=== PATIENT | female | born 1985 | race Caucasian/White ===

== ENCOUNTER 2024-10-29 06:42 | Emergency (ER) | payer MEDICAID, SELFPAY ==
[2024-10-29 06:42] VITALS: BMI 39.1
[2024-10-29 06:56] VITALS: BP 175/129; PULSE 100; RESP 17; TEMP 36.9; O2SAT 98
--- NOTE | 2024-10-29 06:59 | EDNOTE_ITS ---
<Statement entered by Flores Kahn MD - 10/29/24 16:32> As co-signing physician, I was present and available for consult prn. I concur with the plan and care as documented by the midlevel provider. ED Skin Abcess FB-RME/HPI General Chief complaint: Animal Bite Stated complaint: SPIDER BITE RT LEG Time Seen by Provider: 10/29/24 06:46 Arrival date/time: 10/29/24 06:42 39-year-old female presents to the emergency department complains of spider bite to the right leg reports symptoms ongoing x 1 day patient reports no fever nausea or vomiting reports the area of concern is painful Limitations: no limitations Related Data Home Medications ?Medication ?Instructions ?Recorded ?Confirmed fluoxetine 20 mg capsule (Prozac) 20 mg PO QDAY 04/26/19 09/22/19 Previous Rx's ?Medication ?Instructions ?Recorded albuterol sulfate 90 mcg/actuation See Rx Instructions inhalation 02/20/19 aerosol inhaler .COMPLEX PRN wheezing / cough / shortness of breath #6.7 grams clindamycin HCl 150 mg capsule 450 mg (3 x 150 mg) PO TID 7 days 10/29/24 #63 caps ibuprofen 800 mg tablet 800 mg PO TID PRN pain #30 tabs 10/29/24 Allergies Allergy/AdvReac Type Severity Reaction Status Date / Time No Known Allergies Allergy Verified 06/08/19 13:59 Review of Systems Review of Systems Systems Reviewed: All systems reviewed, normal except as documented Constitutional Constitutional: Reports system reviewed and no additional complaints, except as documented, Denies fever(s) and Denies headache(s) Eyes Eyes: Reports system reviewed and no additional complaints, except as documented and Denies blurry vision ENT Ears, Nose, Mouth, and Throat: Reports system reviewed and no additional complaints, except as documented, Denies headache(s), Denies nasal congestion and Denies nasal discharge Cardiovascular Cardiovascular: Reports system reviewed and no additional complaints, except as documented, Denies chest pain and Denies dyspnea Respiratory Respiratory: Reports system reviewed and no additional complaints, except as documented, Denies chest congestion, Denies cough and Denies dyspnea Gastrointestinal Gastrointestinal: Reports system reviewed and no additional complaints, except as documented and Denies abdominal pain Integumentary/Breasts Skin/Breast: Reports system reviewed and no additional complaints, except as documented and Denies rash Neurologic Neurologic: Reports system reviewed and no additional complaints, except as documented, Reports as per HPI and Denies headache(s) Past Medical History Past Medical History CARDIAC: Negative Congestive Heart Failure RESPIRATORY: Positive Asthma; Negative Chronic Obstructive Pulmonary Disease (COPD) GENITOURINARY: Negative Renal Disease MUSCULOSKELETAL: Positive Arthritis ENDOCRINE: Negative Diabetes Mellitus Type 1 or Diabetes Mellitus Type 2 PSYCHO/SOCIAL: Positive Depression and Anxiety Surgical History SURGICAL: Positive Tubal Ligation and Section Social History SMOKING STATUS: Never smoker ED Exam General Limitations: Present no limitations General appearance: Present alert and in no apparent distress Head Head exam: Present atraumatic Eye Eye exam: Present normal appearance, PERRL and EOMI ENT ENT exam: Present normal exam, normal oropharynx and mucous membranes moist Neck Neck exam: Present normal inspection, full ROM and trachea midline Chest Chest inspection: Present normal inspection and symmetric chest wall rise Respiratory Respiratory exam: Present normal lung sounds bilaterally Cardiovascular Cardiovascular exam: Present regular rate, normal rhythm and normal heart sounds Abdominal Exam Abdominal exam: Present soft and normal bowel sounds Extremities Exam Extremities exam: Present full ROM, tenderness and other (Right upper leg insect bite versus cellulitis versus abscess) Back Exam Back exam: Present normal inspection and full ROM Neurological Exam Neurological exam: Present alert, oriented X3 and CN II-XII intact Psychiatric Psychiatric exam: Present normal affect and normal mood Skin Skin exam: Present warm, dry and other (Right upper leg insect bite versus cellulitis versus abscess) Course Quality Measures none Orders Category Date Time Status Ketorolac Inj [Toradol Inj] Med 10/29/24 06:59 Discontinued 30 mg IM X1 ONE Vital Signs Vital signs: Vital Signs Temperature 98.4 F 10/29/24 06:56 Pulse Rate 100 10/29/24 06:56 Respiratory Rate 17 10/29/24 06:56 Blood Pressure 175/129 H 10/29/24 06:56 Pulse Oximetry (%) 98 10/29/24 06:56 Oxygen Delivery Method Room Air 10/29/24 06:56 O2 saturation 98% room air within normal limits Skin / Abscess / Foreign Body MDM Narrative MDM Narrative:: 39-year-old female presents to the emergency department complains of spider bite to the right leg reports symptoms ongoing x 1 day patient reports no fever nausea or vomiting reports the area of concern is painful On exam patient has what appears to be an insect bite versus a cellulitis versus early abscess to the right upper leg Patient given Toradol discharged home with course of antibiotics and pain medication Explained to the patient should this worsen come back for reevaluation and possible I&D patient states understanding Patient data External records reviewed:: [facility] previous records Clinical information provided by:: patient Social determinants that could affect healthcare access:: mental health Patient has the following chronic illnesses:: See history How is presenting disease/condition affected by chronic disease/condition?: uneffected by Evaluation data The following diagnostics were reviewed and interpreted by me:: other (specify) (N/A) Lab and/or radiology exams considered but not ordered:: Consider not ordered Interpretation Summary: N/A Medications / Prescriptions Medications or Prescriptions considered but not ordered:: Given Medication administrations:: Medication Administration History Discontinued Medications Ketorolac Tromethamine (Ketorolac Inj 30 Mg/Ml Vial) 30 mg IM X1 ONE Stop: 10/29/24 07:00 given Consultations Consultation(s) initiated? (list below): No Diagnosis Skin/Abscess Differential Diagnosis: abscess of skin or subcutaneous tissue and cellulitis Most likely diagnosis given after review of the tests above:: Insect bite Admission Indicated Admission indicated?: not indicated Admission Request Was there a request for admission?: No Disposition Plan Disposition Plan: Discharge Discharge Attestation Discharge Attestation: The patient and all family members were given an opportunity to ask questions and understood the discharge instructions. Discharge instructions specifically effects, indications for sooner follow up or return to the emergency department, and the expected course of current diagnosis. Patient condition: Stable Discharge Plan Plan Patient Disposition: HOME (Self Care) Disposition Comment: Stable Prescriptions/Referrals Prescriptions/Med Rec: New ibuprofen 800 mg tablet 800 mg PO TID PRN (Reason: pain) Qty: 30 0RF clindamycin HCl 150 mg capsule 450 mg PO TID 7 Days Qty: 63 0RF No Action albuterol sulfate 90 mcg/actuation HFA aerosol inhaler See Rx Instructions INH .COMPLEX PRN (Reason: wheezing / cough / shortness of breath) Qty: 6.7 0RF Rx Instructions: INH PRN; 1-2 puffs Q4-6 hours prn. administer with spacer fluoxetine [Prozac] 20 mg capsule 20 mg PO QDAY Referrals: Temporary Provider,ED [Primary Care Provider] - 10/30/24 Problem List Clinical Impression: Infected insect bite of right leg Patient/Caregiver Discharge Instructions Education Materials: ED Insect Bite Additional Instructions: Please follow up with your primary care doctor in the next 24-48hrs for any worsening symptoms return here immediately Print Language: Korean Stand Alone Forms: Gali Award Info., Patient Portal Info Letter PA/PHOTOGRAPHIC PLATE MAKER Supervising Physician PA/PHOTOGRAPHIC PLATE MAKER Supervising Physician: Dr. kahn
[2024-10-29] MEDS: KETOROLAC INJ 30 MG/ML VIAL IM (07:07)
== END 2024-10-29 07:10 | disposition home or self-care (01) ==
LOC: SERX 07:22
PROVIDERS: Emergency Provider Emergency Medicine
DX: S70.361A Insect bite (nonvenomous), right thigh, initial encounter (principal); L08.9 Local infection of the skin and subcutaneous tissue, unspecified; W57.XXXA Bitten or stung by nonvenomous insect and other nonvenomous arthropods, initial encounter
CPT/HCPCS: 96372; 99283; J1885

== ENCOUNTER 2025-01-01 20:54 | Emergency (ER) | payer MEDICAID, SELFPAY ==
--- NOTE | 2025-01-01 21:55 | XR_ITS ---
Examination: PA lateral chest 2 views Technique: Upright PA lateral chest 2 views Exam date and time: January 01, 2025 10:14 PM Indications: Difficulty breathing beginning 2 days ago. Findings: Mild enlargement left ventricle No pneumonia or pulmonary edema The osseous structures are intact Impression: No pneumonia or pulmonary edema
[2025-01-01 21:56] VITALS: BP 160/97; PULSE 84; RESP 18; TEMP 36.7; O2SAT 98; BMI 41.0
--- NOTE | 2025-01-01 21:56 | PD.EDSOB ---
ED SOB =RME/HPI General Chief Complaint: Shortness of Breath/Dyspnea Stated Complaint: DIFF BREATHING, COUGH Time Seen by Provider: 01/01/25 21:52 Arrival date/time: 01/01/25 20:54 39-year-old female no history of asthma reports with complaints of shortness of breath x 1 day. Patient also reports having cough and congestion but no fever chills chest pain nausea vomiting or abdominal pain. She denies direct support professional home health sitting or swelling of the lower extremities Patient states that she has been taking [id number] cough medicine with no improvement of symptoms Limitations: no limitations Related Data Home Medications ?Medication ?Instructions ?Recorded ?Confirmed fluoxetine 20 mg capsule (Prozac) 20 mg PO QDAY 04/26/19 09/22/19 Previous Rx's ?Medication ?Instructions ?Recorded albuterol sulfate 90 mcg/actuation See Rx Instructions inhalation 02/20/19 aerosol inhaler .COMPLEX PRN wheezing / cough / shortness of breath #6.7 grams ibuprofen 800 mg tablet 800 mg PO TID PRN pain #30 tabs 10/29/24 albuterol sulfate 90 mcg/actuation 2 puff inhalation QID PRN 01/01/25 aerosol inhaler (Ventolin HFA) shortness of breath or wheezing #8.5 grams Allergies Allergy/AdvReac Type Severity Reaction Status Date / Time No Known Allergies Allergy Verified 01/01/25 20:58 Review of Systems Constitutional Constitutional: Denies chills and Denies fever(s) ENT Ears, Nose, Mouth, and Throat: Denies dizziness, Denies sore throat, Denies throat swelling and Denies tongue swelling Cardiovascular Cardiovascular: Denies chest pain and Reports dyspnea Respiratory Respiratory: Reports cough and Reports dyspnea Gastrointestinal Gastrointestinal: Denies nausea and Denies vomiting Musculoskeletal Musculoskeletal: Denies back pain and Denies myalgias Integumentary/Breasts Skin/Breast: Denies erythema and Denies rash Neurologic Neurologic: Denies convulsions and Denies dizziness Hematologic/Lymphatic Hematologic/Lymphatic: Denies as per HPI and Denies easy bleeding Allergic/Immunologic Allergic/Immunologic: Denies throat swelling, Denies tongue swelling and Denies urticaria Past Medical History Past Medical History CARDIAC: Negative Congestive Heart Failure RESPIRATORY: Positive Asthma; Negative Chronic Obstructive Pulmonary Disease (COPD) GENITOURINARY: Negative Renal Disease MUSCULOSKELETAL: Positive Arthritis ENDOCRINE: Negative Diabetes Mellitus Type 1 or Diabetes Mellitus Type 2 PSYCHO/SOCIAL: Positive Depression and Anxiety Surgical History SURGICAL: Positive Tubal Ligation and Section Social History SMOKING STATUS: Current every day smoker ED Exam General Limitations: Present no limitations General appearance: Present alert and in no apparent distress Head Head exam: Present atraumatic Eye Eye exam: Present normal appearance, PERRL and EOMI ENT ENT exam: Present normal exam, normal oropharynx and mucous membranes moist Neck Neck exam: Present normal inspection, full ROM and trachea midline Chest Chest inspection: Present normal inspection and symmetric chest wall rise Respiratory Respiratory exam: Present normal lung sounds bilaterally Cardiovascular Cardiovascular exam: Present regular rate, normal rhythm and normal heart sounds Abdominal Exam Abdominal exam: Present soft and normal bowel sounds Extremities Exam Extremities exam: Present normal inspection and full ROM Back Exam Back exam: Present normal inspection and full ROM Neurological Exam Neurological exam: Present alert, oriented X3 and CN II-XII intact Psychiatric Psychiatric exam: Present normal affect and normal mood Skin Skin exam: Present warm, dry, intact and normal color Course Course Course Narrative: 39-year-old female with no history of asthma or lung disorders presents today with complaints of sudden onset of shortness of breath. COVID and influenza are negative chest x-ray is negative for evidence of infiltrates or opacities patient received an albuterol neb treatment and the patient states that she is able to breathe better and her oxygen saturations remain above 95% she is stable nontoxic-appearing in no respiratory distress lung exam clear she will be discharged home with an albuterol inhaler and advised to follow-up with primary care provider in 48 hours. Patient verbalized understanding Quality Measures none Orders Category Date Time Status Bedside COVID-19 Antigen Test NOW Care 01/01/25 21:55 Active Bedside Influenza A&B Antigen Test NOW Care 01/01/25 21:56 Completed XR chest 2V Stat Exams 01/01/25 21:55 Completed ALBUTEROL RT 0.5ml [Proventil Rt 0.5ml] Med 01/01/25 22:40 Discontinued 2.5 mg INH X1 ONE Sodium Chloride Rt Sammie 0.9% [NS Rt Sammie 0.9%] Med 01/01/25 22:40 Active 3 ml INH PRN PRN Vital Signs Vital signs: Vital Signs Temperature 98.0 F 01/01/25 21:56 Pulse Rate 84 01/01/25 21:56 Respiratory Rate 18 01/01/25 21:56 Blood Pressure 160/97 H 01/01/25 21:56 Pulse Oximetry (%) 98 01/01/25 21:56 Oxygen Delivery Method Room Air 01/01/25 21:56 Shortness of Breath / Dyspnea Patient data External records reviewed:: None Clinical information provided by:: patient Social determinants that could affect healthcare access:: none Patient has the following chronic illnesses:: none How is presenting disease/condition affected by chronic disease/condition?: no chronic disease Evaluation data The following diagnostics were reviewed and interpreted by me:: lab results and radiology exam(s) Lab and/or radiology exams considered but not ordered:: none Interpretation Summary: Negative for flu negative for COVID and negative for evidence of opacities or infiltrates of the lungs Medications / Prescriptions Medications or Prescriptions considered but not ordered:: none Medication administrations:: Medication Administration History Sodium Chloride (Sodium Chloride Rt Sammie 0.9% 3 Ml Nebu) 3 ml INH PRN PRN PRN Reason: SOLN Stop: 01/31/25 22:39 Last Admin: 01/01/25 22:53 Dose: 3 ml Documented By: CHEMA Discontinued Medications Albuterol (Albuterol Rt 2.5 Mg/0.5 Ml Nebu) 2.5 mg INH X1 ONE Stop: 01/01/25 22:41 Last Admin: 01/01/25 22:52 Dose: 2.5 mg Documented By: CHEMA albuterol neb Consultations Consultation(s) initiated? (list below): No Diagnosis Shortness of Breath Differential Diagnosis: community acquired pneumonia and other (flu, covid) Most likely diagnosis given after review of the tests above:: viral syndrome Admission Indicated Admission indicated?: not indicated Admission Request Was there a request for admission?: No Disposition Plan Disposition Plan: Discharge Discharge Attestation Discharge Attestation: The patient and all family members were given an opportunity to ask questions and understood the discharge instructions. Discharge instructions specifically effects, indications for sooner follow up or return to the emergency department, and the expected course of current diagnosis. Patient condition: Stable Discharge Plan Plan Patient Disposition: HOME (Self Care) Prescriptions/Referrals Prescriptions/Med Rec: New albuterol sulfate [Ventolin HFA] 90 mcg/actuation HFA aerosol inhaler 2 puff inhalation QID PRN (Reason: shortness of breath or wheezing) Qty: 8.5 0RF No Action albuterol sulfate 90 mcg/actuation HFA aerosol inhaler See Rx Instructions INH .COMPLEX PRN (Reason: wheezing / cough / shortness of breath) Qty: 6.7 0RF Rx Instructions: INH PRN; 1-2 puffs Q4-6 hours prn. administer with spacer fluoxetine [Prozac] 20 mg capsule 20 mg PO QDAY ibuprofen 800 mg tablet 800 mg PO TID PRN (Reason: pain) Qty: 30 0RF Referrals: No Primary/Family,Physician [Primary Care Provider] - In 1 week Problem List Clinical Impression: Acute viral syndrome Patient/Caregiver Discharge Instructions Discharge Activity: activity as tolerated Education Materials: ED Viral Syndrome (Adult) Additional Instructions: Use medication as directed follow with your primary care provider in 48 hours if symptoms worsen return to the emergency department immediately Print Language: Iranian Stand Alone Forms: Gali Award Info., Patient Portal Info Letter
[2025-01-01 22:52] VITALS: PULSE 84
[2025-01-01] MEDS: ALBUTEROL RT 2.5 MG/0.5 ML NEBU INH (22:52)
[2025-01-01] MEDS: SODIUM CHLORIDE RT SOL 0.9% 3 ML NEBU INH (22:53)
[2025-01-01 22:56] VITALS: PULSE 74; RESP 16; O2SAT 98
[2025-01-01 23:36] VITALS: BP 152/76; PULSE 75; RESP 17; TEMP 36.7; O2SAT 99
== END 2025-01-01 23:38 | disposition home or self-care (01) ==
PROVIDERS: Emergency Provider Emergency Medicine
DX: B34.9 Viral infection, unspecified (principal)
CPT/HCPCS: 71046; 87400; 87811; 94640; 99283

== ENCOUNTER 2025-04-26 12:26 | Emergency (ER) | payer MEDICAID, SELFPAY ==
--- NOTE | 2025-04-26 12:32 | EKG_ITS ---
[facility] Test Date: 2025-04-26 Pat Name: CONNOR FAUST Department: Room: - Gender: Female [employer]: : 1985 Requested By: Juan Barrios Order Number: [id number] Reading MD: Juan Barrios Measurements Intervals [place] Rate: 80 P: 25 WV: 144 QRS: 7 QRSD: 88 T: 32 QT: 370 QTc: 427 Interpretive Statements SINUS RHYTHM Compared to ECG 04/01/2018 16:18:14 Sinus arrhythmia no longer present Myocardial infarct finding no longer present /store/[id number].pdf
[2025-04-26 12:43] VITALS: BP 164/109; BP 182/118; PULSE 81; RESP 18; TEMP 36.9; O2SAT 98; BMI 38.9
--- NOTE | 2025-04-26 13:17 | PD.EDRME ---
Rapid Medical Screening Exam RME Arrival date/time: 04/26/25 12:26 This is a 40-year-old female that comes into the emergency room with complaints of dizziness, weakness. Patient states yesterday she was having very bad abdominal pain that radiated to her back. Patient states this has improved today. Patient has a history of high blood pressure. Patient states that she was previously told that she had prediabetes. Patient is a smoker and smokes about a pack a day. I have greeted and performed a focused initial assessment of this patient. Initial appropriate labs ordered at this time. A comprehensive ED assessment and evaluation of the patient and analysis of all test and completion of medical decision making process will be conducted by additional ED provider. Chief Complaint: Chest Pain Time Seen by Provider: 04/26/25 12:48 Vital signs: Vital Signs Temperature 98.5 F 04/26/25 12:43 Pulse Rate 81 04/26/25 12:43 Respiratory Rate 18 04/26/25 12:43 Blood Pressure 182/118 H 04/26/25 12:43 Pulse Oximetry (%) 98 04/26/25 12:43 Oxygen Delivery Method Room Air 04/26/25 12:43
--- NOTE | 2025-04-26 13:19 | XR_ITS ---
Examination: AP lateral chest 2 views Technique: Portable upright AP lateral chest 2 views Date and time: April 26, 2025 1345 hrs. Comparison January 01, 2025 Indications: Chest pain today. Findings: Minimal prominence left ventricle. No pneumonia or pulmonary edema. Mild osteopenia Impression: No pneumonia or pulmonary edema
[2025-04-26 13:40] LABS: Basophils % (Auto) 0 % (0-2.5); Eosinophils # (Auto) 0.2 Thou/mm3 (0.0-0.5); Eosinophils % (Auto) 2 % (0-10); Hematocrit 40.1 % (36.0-46.0); Hemoglobin 12.8 g/dL (12.0-16.0); Immature Granulocytes % (Auto) 0 % (0-0); Immature Granulocytes Auto 0.03 Thou/mm3 (0.00-0.00); Lymphocytes # (Auto) 1.6 Thou/mm3 (1.0-4.8); Lymphocytes % (Auto) 15 % (10-50); Mean Corpuscular HGB Conc 31.9 g/dl (31.0-37.0); Mean Corpuscular Hemoglobin 23.5 pg (25.0-35.0); Mean Corpuscular Volume 74 fL (80-100); Monocytes # (Auto) 0.4 Thou/mm3 (0.0-0.8); Monocytes % (Auto) 4 % (0-12); Neutrophils % (Auto) 79 % (37-80); Nucleated Red Blood Cell % 0 /100 WBC (0); Platelet Count 349 Thou/mm3 (140-440); RDW Standard Deviation 40.7 fL (36.4-46.3); Red Blood Count 5.45 Miln/mm3 (4.00-5.20); White Blood Count 10.2 Thou/mm3 (3.6-11.0)
[2025-04-26 13:52] LABS: Alanine Aminotransferase 24 U/L (10-49); Albumin, Serum 4.7 gm/dL (3.5-5.0); Albumin/Globulin Ratio 1.6 (1.2-2.2); Alkaline Phosphatase 105 U/L (46-116); Anion Gap 9 (7-16); Aspartate Amino Transferase 18 U/L (0-34); BUN/Creatinine Ratio 10 Ratio (12-20); Bilirubin,Total 0.3 mg/dL (0.3-1.2); Blood Urea Nitrogen 9 mg/dL (9-23); Calcium 9.4 mg/dL (8.3-10.6); Calcium (Corrected) 9.4 mg/dL (8.5-10.1); Carbon Dioxide 26.6 mMol/L (20.0-31.0); Chloride 102 mMol/L (98-107); Creatinine (Component) 0.9 mg/dL (0.6-1.3); Estimated Creatinine Clearance 107.7 mL/min (>60); Glucose 99 mg/dL (74-106); Lipase 26 U/L (12-53); Osmolality,Calculated 274 (275-295); Potassium 4.5 mMol/L (3.4-5.1); Sodium 138 mMol/L (136-145); Total Protein 7.7 gm/dL (5.7-8.2); Troponin I < 0.002 ng/mL (0.0-0.045); eGFR > 60 See Note
[2025-04-26 14:21] LABS: Collection Type, Urine Voided
[2025-04-26 14:32] LABS: Bilirubin,Urine Negative (Negative); Blood,Urine Trace (Negative); Clarity,Urine Clear (Clear/Hazy); Color,Urine Lt-Yellow (Lt Yel-Yel); Culture Indicated,Urine Not Indicated; Glucose, Urine Negative (Negative); Ketones,Urine Negative (Negative); Leukocyte Esterase,Urine Negative (Negative); Nitrite,Urine Negative (Negative); Protein,Urine Negative (Neg - Trace); RBC,Urine 4 /hpf (0-3); Specific Gravity,Urine 1.013 (1.001-1.035); Squamous Epithelial Cell,Urine 6 /hpf (0-5); Urobilinogen,Urine Negative mg/dL (0.0-1.0); WBC,Urine 1 /hpf (0-5)
[2025-04-26 14:33] LABS: HCG Qualitative,Urine Negative
[2025-04-26 14:47] LABS: Amphetamine/Methamp Scrn,U Negative (Negative); Barbiturate Screen,Urine Negative (Negative); Benzodiazepines Screen,Urine Negative (Negative); Benzoylecgonine Screen, Ur Negative (Negative); Fentanyl Screen,Urine Negative (Negative); Opiate Screen,Urine Negative (Negative); THC Screen,Urine Negative (Negative)
[2025-04-26 15:57] VITALS: BP 170/109; BP 171/115; PULSE 72; RESP 18; TEMP 36.7; O2SAT 99
[2025-04-26 16:05] VITALS: BP 187/110; PULSE 67
[2025-04-26] MEDS: NIFEdipine 10 MG CAPSULE 20 MG PO (16:05)
--- NOTE | 2025-04-26 16:20 | EDNOTE_ITS ---
ED Chest Pain RME/HPI General Chief Complaint: Chest Pain Stated Complaint: Chest pain today, nausea Time Seen by Provider: 04/26/25 12:48 Arrival date/time: 04/26/25 12:26 RME / HPI RME / HPI narrative: 40-year-old female that comes into the emergency room with complaints of dizziness, weakness. Patient states yesterday she was having very bad abdominal pain that radiated to her back. Patient states this has improved today. Jessica patiño has a history of high blood pressure. She also complained of left-sided chest pain severity mild, early today. Patient states that she was previously told that she had prediabetes. Patient is a smoker and smokes about a pack a day. She also had a history of anxiety. She is taking her blood pressure medication but very poor compliance. . Related Data Home Medications ?Medication ?Instructions ?Recorded ?Confirmed fluoxetine 20 mg capsule (Prozac) 20 mg PO QDAY 09/22/19 Previous Rx's ?Medication ?Instructions ?Recorded albuterol sulfate 90 mcg/actuation See Rx Instructions inhalation 02/20/19 aerosol inhaler .COMPLEX PRN wheezing / coug h / shortness of breath #6.7 grams ibuprofen 800 mg tablet 800 mg PO TID PRN pain #30 t abs 10/29/24 albuterol sulfate 90 mcg/actuation 2 puff inhalation Q ID PRN 01/01/25 aerosol inhaler (Ventolin HFA) shortness of breath or wheezing #8.5 grams lorazepam 0.5 mg tablet (Ativan) 0.5 mg PO BID PRN anx iety #14 tabs 04/26/25 Allergies Allergy/AdvReac Type Severity Reaction Status Date / Time No Known Allergies Allergy Verified 04/26/25 12:31 Review of Systems Review of Systems Narrative Review of Systems: Review of system reviewed and within normal limits except mentioned in HPI ED Exam Narrative Physical exam: VITAL SIGNS: Reviewed. GENERAL APPEARANCE: Alert and interactive, follows commands, no acute distress, HEAD AND FACE: Non-traumatic. ENT: PERRL, pink conjunctivitis, eyelid no trauma, Mucous membrane moist. NECK: Supple, nontender, no nuchal rigidity. CHEST: No tenderness, no crepitus, no paradoxical movement, no retractions. LUNGS: Clear, well ventilated, symmetric, no rales, no wheezing, no ronchi, no stridor, good breath sounds bilaterally. HEART: Regular rate, regular rhythm, no murmur, no gallops. ABDOMEN: Soft, positive bowel sounds, nondistended, no guarding, nontender, no rebound, no masses, RECTAL: Deferred. GENITAL: Deferred. NEUROLOGICAL: Gross motor function intact sensory function intact, Appropriate for age. MUSCULOSKELETAL: low back nontender, full range of motion. EXTREMITIES: Nontender, full range of motion. SKIN: Color pink, dry, no rash, no lacerations, no abrasions, no contusions. LYMPHATICS: Deferred. Course Quality Measures none Orders Category Date Time Status EKG (ED ONLY) *Do not use* NOW Care 04/26/25 12:32 Completed EKG (ED Only) Stat Exams 04/26/25 12:32 Draft XR chest 2V Stat Exams 04/26/25 13:19 Completed CBC Stat Lab 04/26/25 13:24 Completed Comprehensive Metabolic Panel Stat Lab 04/26/25 13:24 Completed Drug Screen,Urine Stat Lab 04/26/25 14:13 Completed HCG Qualitative,Urine Stat Lab 04/26/25 14:13 Completed Lipase Stat Lab 04/26/25 13:24 Completed Troponin I Stat Lab 04/26/25 13:24 Completed Urinalysis, C/S if Indicated Stat Lab 04/26/25 14:13 Completed LORazepam [Ativan] Med 04/26/25 17:35 Discontinued 0.5 mg PO X1 ONE LORazepam [Ativan] Med 04/26/25 16:48 Discontinued 1 mg PO X1 ONE NIFEdipine [Procardia] Med 04/26/25 16:00 Discontinued 20 mg PO X1 ONE Vital Signs Vital signs: Vital Signs Temperature 98.5 F 04/26/25 12:43 Pulse Rate 81 04/26/25 12:43 Respiratory Rate 18 04/26/25 12:43 Blood Pressure 182/118 H 04/26/25 12:43 Pulse Oximetry (%) 98 04/26/25 12:43 Oxygen Delivery Method Room Air 04/26/25 12:43 Chest Pain MDM Narrative MDM Narrative:: 40-year-old female that comes into the emergency room with complaints of dizziness, weakness. Patient states yesterday she was having very bad abdominal pain that radiated to her back. Patient states this has improved today. Patient has a history of high blood pressure. She also complained of left-sided chest pain severity mild, early today. Patient states that she was previously told that she had prediabetes. Patient is a smoker and smokes about a pack a day. She also had a history of anxiety. She is taking her blood pressure medication but very poor compliance. Patient's cardiac workup all came back normal. Troponin is normal, urinalysis no UTI. Drug test came back unremarkable. I personally reviewed and inter preted the x-ray of this patient. There is no acute abnormalities found, no infiltrates no pneumothorax no hemothorax normal chest x-ray. Review of other structures was without significant abnormal findings also. I additionally reviewed the radiologist report and agree with the interpretation. EKG showed normal sinus rhythm, ventricular rate of 80 bpm, no ST segment elevation or depression noted. Patient blood pressure was noted to be 187/110, patient received Procardia patient's blood pressure was noted to be 169/98 heart rate of 102. Patient verbalized significant improvement of symptoms after Ativan also. Patient appears nontoxic and hemodynamically stable .Decision to discharge the patient. The patient/family was given an opportunity to ask questions and understood their discharge instructions. Discharge instructions specifically included follow up provider and time frame, current and/or new medications and possible side effects, indications for sooner follow up or return to the emergency department, and the expected course of current diagnosis. Patient reports feeling better as well and giving evidence of significant clinical improvement, I believe patient is now a candidate for discharge. Patient data External records reviewed:: None Clinical information provided by:: patient Social determinants that could affect healthcare access:: none Patient has the following chronic illnesses:: Hypertension How is presenting disease/condition affected by chronic disease/condition?: exacerbated by Evaluation data The following diagnostics were reviewed and interpreted by me:: lab results, radiology exam(s) and EKG tracing(s) Lab and/or radiology exams considered but not ordered:: None Interpretation Summary: See results MDM Medications / Prescriptions Medications or Prescriptions considered but not ordered:: None Medication administrations:: Medication Administration History Discontinued Medications Lorazepam (Lorazepam 0.5 Mg Tablet) 1 mg PO X1 ONE Stop: 04/26/25 16:49 Last Admin: 04/26/25 16:56 Dose: Not Given Documented By: TRACY Non-Admin Reason: Patient Refused Lorazepam (Lorazepam 0.5 Mg Tablet) 0.5 mg PO X1 ONE Stop: 04/26/25 17:36 Nifedipine (Nifedipine 10 Mg Capsule) 20 mg PO X1 ONE Stop: 04/26/25 16:01 Last Admin: 04/26/25 16:05 Dose: 20 mg Documented By: TRACY Marin Consultations Consultation(s) initiated? (list below): No Diagnosis Chest Pain Differential Diagnosis: pneumothorax, stable angina, costochondritis and chest pain Most likely diagnosis given after review of the tests above:: Hypertension, anxiety Admission Indicated Admission indicated?: not indicated Admission Request Was there a request for admission?: No Disposition Plan Disposition Plan: Discharge Discharge Attestation Discharge Attestation: The patient and all family members were given an opportunity to ask questions and understood the discharge instructions. Discharge instructions specifically effects, indications for sooner follow up or return to the emergency department, and the expected course of current diagnosis. Patient condition: Stable Discharge Plan Plan Patient Disposition: HOME (Self Care) Discharge Disposition comment: Stable Prescriptions/Referrals Prescriptions/Med Rec: New lorazepam [Ativan] 0.5 mg tablet 0.5 mg PO BID PRN (Reason: anxiety) Qty: 14 0RF No Action albuterol sulfate 90 mcg/actuation HFA aerosol inhaler See Rx Instructions INH .COMPLEX PRN (Reason: wheezing / cough / shortness of breath) Qty: 6.7 0RF Rx Instructions: INH PRN; 1-2 puffs Q4-6 hours prn. administer with spacer fluoxetine [Prozac] 20 mg capsule 20 mg PO QDAY albuterol sulfate [Ventolin HFA] 90 mcg/actuation HFA aerosol inhaler 2 puff inhalation QID PRN (Reason: shortness of breath or wheezing) Qty: 8.5 0RF ibuprofen 800 mg tablet 800 mg PO TID PRN (Reason: pain) Qty: 30 0RF Referrals: Ramesh Avila MD [Primary Care Provider] - In 1 week Problem List Clinical Impression: Anxiety, HTN (hypertension) Patient/Caregiver Discharge Instructions Discharge Activity: activity as tolerated Education Materials: ED Anxiety Reaction Additional Instructions: Thank you for the opportunity for serving you today. You are stable for discharged . You are advised to: Follow-up with your PCP in 1 to 2 days Return to ED for worsening of symptoms Increase oral fluids Take medication as prescribed Please take your blood pressure medications every day. Print Language: Lithuanian Stand Alone Forms: Gali Award Info., Patient Portal Info Letter PA/PROCEDURE TECH Supervising Physician PA/PROCEDURE TECH Supervising Physician: MD Denis
[2025-04-26 16:59] VITALS: BP 176/128; BP 188/120; PULSE 78; RESP 20; TEMP 36.7; O2SAT 98
[2025-04-26 17:34] VITALS: BP 169/98; PULSE 102; RESP 15; O2SAT 100
[2025-04-26 17:52] VITALS: BP 162/88; PULSE 87; RESP 18; TEMP 36.7; O2SAT 99
[2025-04-26] MEDS: LORazepam 0.5 MG TABLET PO (17:52)
== END 2025-04-26 17:53 | disposition home or self-care (01) ==
PROVIDERS: Nurse Practitioner Family; Emergency Provider Emergency Medicine; PCP Family Medicine
DX: F41.9 Anxiety disorder, unspecified (principal); I10 Essential (primary) hypertension; R42 Dizziness and giddiness; F17.210 Nicotine dependence, cigarettes, uncomplicated
CPT/HCPCS: 36415; 71046; 80053; 80307; 81001; 81025; 83690; 84484; 85025; 93005; 99283; A9270

== ENCOUNTER 2025-05-19 14:09 | Emergency (ER) | payer MEDICAID, SELFPAY ==
[2025-05-19 14:30] VITALS: BP 170/109; PULSE 79; RESP 18; TEMP 36.8; O2SAT 95; BMI 37.4
--- NOTE | 2025-05-19 14:48 | PD.EDRME ---
Rapid Medical Screening Exam RME Arrival date/time: 05/19/25 14:09 Chief Complaint: Weakness Vital signs: Vital Signs Temperature 98.2 F 05/19/25 14:30 Pulse Rate 79 05/19/25 14:30 Respiratory Rate 18 05/19/25 14:30 Blood Pressure 170/109 H 05/19/25 14:30 Pulse Oximetry (%) 95 05/19/25 14:30 Oxygen Delivery Method Room Air 05/19/25 14:30 Pulse ox is 95 percent room air. Vital signs reviewed by provider: Yes RME Narrative: Patient tells me that she feels weird and she has a funny feeling in her head. Patient also feels tired with nausea and this has been ongoing x 1 to 2 weeks. Denies vomiting and diarrhea.
[2025-05-19 15:05] LABS: Collection Type, Urine Clean Catch; WBC,Urine 0 /hpf (0-5)
[2025-05-19 15:13] LABS: HCG Qualitative,Urine Negative
[2025-05-19 15:23] LABS: Basophils # (Auto) 0.0 Thou/mm3 (0.0-0.2); Basophils % (Auto) 0 % (0-2.5); Eosinophils # (Auto) 0.1 Thou/mm3 (0.0-0.5); Eosinophils % (Auto) 1 % (0-10); Hematocrit 40.4 % (36.0-46.0); Hemoglobin 12.6 g/dL (12.0-16.0); Immature Granulocytes Auto 0.03 Thou/mm3 (0.00-0.00); Lymphocytes # (Auto) 1.5 Thou/mm3 (1.0-4.8); Lymphocytes % (Auto) 17 % (10-50); Mean Corpuscular HGB Conc 31.2 g/dl (31.0-37.0); Mean Corpuscular Hemoglobin 22.7 pg (25.0-35.0); Mean Corpuscular Volume 73 fL (80-100); Monocytes # (Auto) 0.5 Thou/mm3 (0.0-0.8); Monocytes % (Auto) 6 % (0-12); Neutrophils # (Auto) 6.7 Thou/mm3 (1.8-7.7); Neutrophils % (Auto) 75 % (37-80); Nucleated Red Blood Cell # 0.00 Thou/mm3 (0.00-0.00); Nucleated Red Blood Cell % 0 /100 WBC (0); Platelet Count 310 Thou/mm3 (140-440); RDW Standard Deviation 42.6 fL (36.4-46.3); Red Blood Count 5.56 Miln/mm3 (4.00-5.20); White Blood Count 8.9 Thou/mm3 (3.6-11.0)
[2025-05-19 15:23] LABS: Amphetamine/Methamp Scrn,U Negative (Negative); Barbiturate Screen,Urine Negative (Negative); Benzodiazepines Screen,Urine Negative (Negative); Benzoylecgonine Screen, Ur Negative (Negative); Fentanyl Screen,Urine Negative (Negative); Opiate Screen,Urine Negative (Negative); THC Screen,Urine Negative (Negative)
[2025-05-19 15:30] LABS: Bacteria,Urine Rare; Bilirubin,Urine Negative (Negative); Blood,Urine Trace (Negative); Clarity,Urine Clear (Clear/Hazy); Color,Urine Colorless (Lt Yel-Yel); Culture Indicated,Urine Not Indicated; Glucose, Urine Negative (Negative); Ketones,Urine Negative (Negative); Leukocyte Esterase,Urine Negative (Negative); Nitrite,Urine Negative (Negative); PH,Urine 7.0 (5.0-7.0); Protein,Urine Negative (Neg - Trace); RBC,Urine 3 /hpf (0-3); Specific Gravity,Urine 1.006 (1.001-1.035); Squamous Epithelial Cell,Urine 9 /hpf (0-5); Urobilinogen,Urine Negative mg/dL (0.0-1.0)
[2025-05-19 15:48] LABS: Alanine Aminotransferase 27 U/L (10-49); Albumin, Serum 4.7 gm/dL (3.5-5.0); Albumin/Globulin Ratio 1.5 (1.2-2.2); Alkaline Phosphatase 108 U/L (46-116); Anion Gap 10 (7-16); Aspartate Amino Transferase 20 U/L (0-34); BUN/Creatinine Ratio 10 Ratio (12-20); Bilirubin,Total 0.2 mg/dL (0.3-1.2); Blood Urea Nitrogen 8 mg/dL (9-23); Calcium 9.6 mg/dL (8.3-10.6); Calcium (Corrected) 9.6 mg/dL (8.5-10.1); Carbon Dioxide 27.7 mMol/L (20.0-31.0); Chloride 103 mMol/L (98-107); Creatinine (Component) 0.8 mg/dL (0.6-1.3); Estimated Creatinine Clearance 122.5 mL/min (>60); Globulin 3.2 gm/dL (2.3-3.5); Glucose 112 mg/dL (74-106); Magnesium 1.7 mg/dL (1.6-2.6); Osmolality,Calculated 280 (275-295); Potassium 4.3 mMol/L (3.4-5.1); Procalcitonin 0.04 ng/ml (0.0-0.49); Sodium 141 mMol/L (136-145); Total Protein 7.9 gm/dL (5.7-8.2); eGFR > 60 See Note
[2025-05-19 17:22] VITALS: BP 139/84; PULSE 81; RESP 19; TEMP 36.4; O2SAT 99
--- NOTE | 2025-05-19 17:29 | PD.EDWEAK ---
ED Weakness RME/HPI General Chief complaint: Weakness Stated complaint: Tired, light headed, cough Time Seen by Provider: 05/19/25 17:29 Source: patient Arrival date/time: 05/19/25 14:09 Mode of arrival: ambulatory Limitations: no limitations RME / HPI RME / HPI Narrative: Patient tells me that she feels weird and she has a funny feeling in her head. Patient also feels tired with nausea and this has been ongoing x 1 to 2 weeks. Denies vomiting and diarrhea. MD Complaint: generalized weakness Onset (ago): week(s) (2 WEEKS) Duration: constant Location: generalized Severity scale (1-10): 5 Relieving factors: none Related Data Home Medications ?Medication ?Instructions ?Recorded ?Confirmed fluoxetine 20 mg capsule (Prozac) 20 mg PO QDAY 04/26/19 09/22/19 Previous Rx's ?Medication ?Instructions ?Recorded albuterol sulfate 90 mcg/actuation See Rx Instructions inhalation 02/20/19 aerosol inhaler .COMPLEX PRN wheezing / cough / shortness of breath #6.7 grams ibuprofen 800 mg tablet 800 mg PO TID PRN pain #30 tabs 10/29/24 albuterol sulfate 90 mcg/actuation 2 puff inhalation QID PRN 01/01/25 aerosol inhaler (Ventolin HFA) shortness of breath or wheezing #8.5 grams lorazepam 0.5 mg tablet (Ativan) 0.5 mg PO BID PRN anxiety #14 tabs 04/26/25 Allergies Allergy/AdvReac Type Severity Reaction Status Date / Time No Known Allergies Allergy Verified 05/19/25 14:13 Review of Systems Constitutional Constitutional: Reports system reviewed and no additional complaints, except as documented Eyes Eyes: Reports system reviewed and no additional complaints, except as documented, Denies dry eyes, Denies exophthalmos and Reports floaters Cardiovascular Cardiovascular: Denies chest pain with activity and Denies claudication ED Exam General Limitations: Present no limitations General appearance: Present alert Head Head exam: Present atraumatic Eye Eye exam: Present normal appearance and EOMI ENT ENT exam: Present normal exam and normal oropharynx Neck Neck exam: Present normal inspection and full ROM Chest Chest inspection: Present normal inspection Respiratory Respiratory exam: Present normal lung sounds bilaterally Cardiovascular Cardiovascular exam: Present regular rate and normal rhythm Abdominal Exam Abdominal exam: Present soft Rectal Exam Rectal exam: Present deferred Extremities Exam Extremities exam: Present normal inspection and full ROM Back Exam Back exam: Present normal inspection and full ROM Neurological Exam Neurological exam: Present alert and oriented X3 Psychiatric Psychiatric exam: Present normal affect and normal mood Skin Skin exam: Present warm, dry and intact Course Course Course Narrative: Patient will have a CBC, CMP, drug screen, hCG, magnesium, procalcitonin, UA. Quality Measures none (NA) Orders Category Date Time Status CBC Stat Lab 05/19/25 15:02 Completed CMP [Comprehensive Metabolic Panel] Stat Lab 05/19/25 15:02 Completed Drug Screen,Urine Stat Lab 05/19/25 14:55 Completed HCG Qualitative,Urine Stat Lab 05/19/25 14:55 Completed Magnesium Stat Lab 05/19/25 15:02 Completed Procalcitonin Stat Lab 05/19/25 15:02 Completed UA, C/S IF [Urinalysis, C/S if Indicated] Stat Lab 05/19/25 14:55 Completed Vital Signs Vital signs: Vital Signs Temperature 98.2 F 05/19/25 14:30 Pulse Rate 79 05/19/25 14:30 Respiratory Rate 18 05/19/25 14:30 Blood Pressure 170/109 H 05/19/25 14:30 Pulse Oximetry (%) 95 05/19/25 14:30 Oxygen Delivery Method Room Air 05/19/25 14:30 Pulse ox 95% room air Weakness MDM Narrative MDM Narrative:: Patient will be informed of her blood work. She is to primary care physician for follow-up to today's visit. She has been discharged in no apparent distress. Patient may return here if she was worse. Patient data External records reviewed:: Other (specify) (DES) Clinical information provided by:: none (NA) Social determinants that could affect healthcare access:: none (NA) Patient has the following chronic illnesses:: NA How is presenting disease/condition affected by chronic disease/condition?: no chronic disease (NA) Evaluation data The following diagnostics were reviewed and interpreted by me:: lab results Lab and/or radiology exams considered but not ordered:: All labs contributed to the diagnosis of generalized weakness. Interpretation Summary: NA Medications / Prescriptions Medications or Prescriptions considered but not ordered:: NA Medication administrations:: NA Consultations Consultation(s) initiated? (list below): No Diagnosis Weakness Differential Diagnosis: acute myocardial infarction, hypoglycemia, hypothyroidism and rhabdomyolysis Most likely diagnosis given after review of the tests above:: NA Admission Indicated Admission indicated?: not indicated Explain why admission is indicated or not indicated:: NA Admission Request Was there a request for admission?: No Admission Attestation Admission request attestation: NA Disposition Plan Disposition Plan: Discharge Discharge Attestation Discharge Attestation: The patient and all family members were given an opportunity to ask questions and understood the discharge instructions. Discharge instructions specifically effects, indications for sooner follow up or return to the emergency department, and the expected course of current diagnosis. Patient condition: Stable Discharge Plan Plan Patient Disposition: HOME (Self Care) Discharge Disposition comment: NA Patient condition on transfer: Stable Prescriptions/Referrals Prescriptions/Med Rec: No Action albuterol sulfate 90 mcg/actuation HFA aerosol inhaler See Rx Instructions INH .COMPLEX PRN (Reason: wheezing / cough / shortness of breath) Qty: 6.7 0RF Rx Instructions: INH PRN; 1-2 puffs Q4-6 hours prn. administer with spacer fluoxetine [Prozac] 20 mg capsule 20 mg PO QDAY albuterol sulfate [Ventolin HFA] 90 mcg/actuation HFA aerosol inhaler 2 puff inhalation QID PRN (Reason: shortness of breath or wheezing) Qty: 8.5 0RF lorazepam [Ativan] 0.5 mg tablet 0.5 mg PO BID PRN (Reason: anxiety) Qty: 14 0RF ibuprofen 800 mg tablet 800 mg PO TID PRN (Reason: pain) Qty: 30 0RF Referrals: Ramesh Avila MD [Primary Care Provider] - In 1 week Problem List Clinical Impression: Generalized weakness Patient/Caregiver Discharge Instructions Discharge Activity: activity as tolerated Print Language: Rwandan Stand Alone Forms: Gali Award Info., Patient Portal Info Letter PA/JOURNEYMAN PIPE WELDER Supervising Physician PA/ZUNILDA Supervising Physician: NATALIA
== END 2025-05-19 17:51 | disposition home or self-care (01) ==
PROVIDERS: Physician Assistant; Emergency Provider Emergency Medicine; PCP Family Medicine
DX: R53.1 Weakness (principal)
CPT/HCPCS: 36415; 80053; 80307; 81001; 81025; 83735; 84145; 85025; 99283